=== PATIENT | male | born 1965 | race African-American/Black ===

== ENCOUNTER 2019-12-16 08:08 | Day surgery (SDC) | payer OTHER ==
[~2019-12-16] VITALS: Ht 180.3 cm; Wt 86.2 kg
[~2019-12-16 08:08] MED LIST: BIKTARVY 50-2001 TAB PO
[2019-12-16 11:04] VITALS: BP 114/74
== END 2019-12-16 11:20 | disposition home or self-care (01) | DRG 395 ==
LOC: ENDO 08:08 → ORM 10:30 → ENDO 11:20
PROVIDERS: ATTEND Surgery
PROC: 0DBH8ZX Excision of Cecum, Via Natural or Artificial Opening Endoscopic, Diagnostic (ICD-10-PCS; principal; 2019-12-16)
PROC: 0DBL8ZX Excision of Transverse Colon, Via Natural or Artificial Opening Endoscopic, Diagnostic (ICD-10-PCS; 2019-12-16)
DX: D12.0 Benign neoplasm of cecum (principal); D12.3 Benign neoplasm of transverse colon; K64.8 Other hemorrhoids; Z21 Asymptomatic human immunodeficiency virus [HIV] infection status; Z20.828 Contact with and (suspected) exposure to other viral communicable diseases

== ENCOUNTER 2020-10-10 09:17 | Emergency (ER) | payer SELFPAY ==
[2020-10-10] MEDS ORDERED: IBUPROFEN600 MG PO (10:59)
[2020-10-10] MEDS ORDERED: FLEXERIL5 M1 PO (10:59)
[2020-10-10 11:13] VITALS: BP 130/78
== END 2020-10-10 11:14 | disposition home or self-care (01) | DRG 552 ==
LOC: ED 09:17
DX: M43.6 Torticollis (principal); Z21 Asymptomatic human immunodeficiency virus [HIV] infection status

== ENCOUNTER 2021-09-25 20:27 | Emergency (ER) | payer SELFPAY ==
[~2021-09-25] VITALS: Ht 180.3 cm; Wt 90.0 kg
[~2021-09-25 20:27] MED LIST changes: +FLEXERIL5 M1 PO; +IBUPROFEN600 MG PO
[2021-09-25 21:13] LABS: HEMATOCRIT 44.8 % (39.0-50.0); HEMOGLOBIN 14.7 g/dl (14.0-18.0); IMMATURE GRANULOCYTES 0.2 % (0.0-5.0); MEAN CELL VOLUME 91.4 fL CALC (80.0-100.0); MEAN CORPUSCULAR HGB CONC 32.8 g/dL CAL (32.0-36.0); NEUT# 3.22 thou/uL (1.82-7.42); RED BLOOD COUNT 4.9 mill/uL (4.70-6.10); RED CELL DISTRI WIDTH 12.7 % (11.5-15.5)
[2021-09-25 21:28] LABS: ALBUMIN 4.1 g/dL (3.2-5.0); ALKALINE PHOSPHATASE 109 u/l (38-126); ANION GAP 7 (6-22 (CALC)); BILIRUBIN, TOTAL 0.6 mg/dL (0.0-1.4); BUN 12 mg/dL (9-20); BUN/CREATININE RATIO 14 (12-20 (CALC)); CARBON DIOXIDE 28 mmol/l (22-30); CHLORIDE 100 mmol/l (95-108); CPK 141 u/l (52-200); CREATININE 0.9 mg/dL (0.7-1.3); GFR FOR AFR.AMER. > 60 ML/MIN (>=60 (CALC)); GFR OTHER RACES > 60 ML/MIN (>=60 (CALC)); POTASSIUM 3.5 mmol/l (3.5-5.1); SGOT/AST 26 u/l (17-59); SODIUM 132 mmol/l (137-146); TOTAL PROTEIN 7.7 g/dL (6.3-8.2)
[2021-09-25 23:25] LABS: URINE BILIRUBIN - DIPSTICK NEGATIVE (NEGATIVE); URINE BLOOD DIPSTICK SMALL (NEGATIVE); URINE COLOR YELLOW; URINE GLUCOSE - DIPSTICK NEGATIVE (NEGATIVE); URINE KETONE NEGATIVE (NEGATIVE); URINE LEUK ESTERASE NEGATIVE (NEGATIVE); URINE PROTEIN - DIPSTICK NEGATIVE (NEG-TRACE); URINE SPECIFIC GRAVITY <=1.005; URINE UROBILINOGEN - DIPSTICK 0.2 E.U./dL (0.2)
[2021-09-25 23:29] LABS: URINE NITRITE - DIPSTICK NEGATIVE (Negative)
[2021-09-25] MEDS ORDERED: PAXLOVID PO (23:35)
[2021-09-25 23:37] VITALS: BP 132/78
[2021-09-25 23:42] LABS: URINE SQUAMOUS EPITHELIAL CELL FEW EPI/hpf (0-FEW); URINE WBC 0-2 WBC/hpf (0-5)
== END 2021-09-25 23:47 | disposition home or self-care (01) | DRG 179 ==
LOC: ED 20:27
PROVIDERS: Family Medicine
DX: U07.1 COVID-19 (principal); R09.81 Nasal congestion; R05.9 Cough, unspecified; R51.9 Headache, unspecified; M79.10 Myalgia, unspecified site; Z28.311 Partially vaccinated for COVID-19

== ENCOUNTER 2022-03-11 10:07 | Emergency (ER) | payer SELFPAY ==
[~2022-03-11] VITALS: Ht 180.3 cm; Wt 90.7 kg
[~2022-03-11 10:07] MED LIST changes: +PAXLOVID PO
[2022-03-11] MEDS ORDERED: TRUVADA PO (10:57)
[2022-03-11 11:00] LABS: URINE BILIRUBIN - DIPSTICK NEGATIVE (NEGATIVE); URINE BLOOD DIPSTICK TRACE-INTACT (NEGATIVE); URINE COLOR YELLOW; URINE GLUCOSE - DIPSTICK 100 mg/dL (NEGATIVE); URINE KETONE NEGATIVE (NEGATIVE); URINE LEUK ESTERASE NEGATIVE (NEGATIVE); URINE PH 5.5 (4.5-8.0); URINE PROTEIN - DIPSTICK NEGATIVE (NEG-TRACE); URINE SPECIFIC GRAVITY >=1.030; URINE UROBILINOGEN - DIPSTICK 0.2 E.U./dL (0.2)
[2022-03-11 11:03] LABS: URINE NITRITE - DIPSTICK NEGATIVE (Negative)
[2022-03-11] MEDS ORDERED: CEPHALEXIN500 M1 PO ×2 (11:14→11:25)
[2022-03-11 11:19] VITALS: BP 145/90
== END 2022-03-11 11:44 | disposition home or self-care (01) | DRG 696 ==
LOC: ED 10:07
PROVIDERS: Family Medicine
DX: R31.9 Hematuria, unspecified (principal)